=== PATIENT | male | born 1970 ===

== ENCOUNTER 2017-07-09 18:20 | Emergency (ER) | payer OTHER, BC ==
--- NOTE | 2017-07-09 19:04 | EDM.PDOC ---
ED HPI GENERAL MEDICAL PROBLEM - General Chief Complaint: Head Injury Stated Complaint: HIT WITH PIPE/LT SIDE FACE Time Seen by Provider: 07/09/17 18:51 Source of Information: Reports: Patient History Limitations: Reports: No Limitations - History of Present Illness INITIAL COMMENTS - FREE TEXT/NARRATIVE: HISTORY AND PHYSICAL: History of present illness: patient is a 46-year-old male who presents to the emergency room today with complaints of head injury. States he was at work around 10:00 this morning and was hit on the left side of the face/skull with a metal wrench. He states he had immediate intense pain but did not loose consciousness. Is now concerned as he does not remember the events for approximately 10-15 minutes after the event. He reports that people were talking to him but told him he "appeared out of it". There does not appear to be any abrasions or open skin. He is tender to palpate the left lutheran and cheek bone. denies any visual changes at this time. Pain is very localized to the left side of the face into the scalp. No hearing loss. Denies any nausea or vomiting. patient does not take any blood thinners or aspirin. Review of systems: As per history of present illness and below otherwise all systems reviewed and negative. Past medical history: As per history of present illness and as reviewed below otherwise noncontributory. Surgical history: As per history of present illness and as reviewed below otherwise noncontributory. Social history: No reported history of drug or alcohol abuse. Family history: As per history of present illness and as reviewed below otherwise noncontributory. Physical exam: Gen.: Well-developed and well-nourished 46-year-old male. Able to speak in full sentences without shortness of breath. Alert and oriented. HEENT: Atraumatic, normocephalic, pupils equal and reactive bilaterally, negative for conjunctival pallor or scleral icterus, no scleral injection, mucous membranes moist. the left lutheran and cheek bone are tender to palpation, no crepitus noted, no abrasions or soft tissue swelling noted. Throat clear, neck supple, nontender, trachea midline. Lungs: Clear to auscultation, breath sounds equal bilaterally, chest nontender. Heart: S1S2, regular, negative for clicks, rubs, or JVD. Abdomen: Soft, nondistended, nontender. Negative for masses or hepatosplenomegaly. Negative for costovertebral tenderness. Pelvis: Stable nontender. Genitourinary: Deferred. Rectal: Deferred. Extremities: Atraumatic, negative for cords or calf pain. Neurovascular unremarkable. Neuro: Awake, alert, oriented. Cranial nerves II through XII unremarkable. Cerebellum unremarkable. Motor and sensory unremarkable throughout. Exam nonfocal. Diagnostics: CT head and facial bones Therapeutics: offered Toradol, patient declined Impression: head injury without loss of consciousness Plan: 1. Please take Tylenol [id number] as needed for pain management. A prescription has been given to you for Cataflam which is an anti-inflammatory If you choose to use the Cataflam please do not take any additional NSAIDs such as ibuprofen or Aleve. 2. reviewed the head injury instructions that were discussed and given to you today. 3. Follow-up with your primary care provider in the next 1-2 days. Return to the ED as needed as discussed Definitive disposition and diagnosis as appropriate pending reevaluation and review of above. Onset: Today Location: Reports: Head, Face Left Buddhism Pain Score (Numeric/FACES): 6 - Related Data Allergies Allergy/AdvReac Type Severity Reaction Status Date / Time No Known Allergies Allergy Verified 07/09/17 18:33 Home Meds: Home Meds Lisinopril/Hydrochlorothiazide [Lisinopril-Hctz 20-12.5 mg Tab] 1 tab PO DAILY 07/09/17 [History] Past Medical History Cardiovascular History: Reports: Hypertension - Past Surgical History HEENT Surgical History: Reports: Adenoidectomy, Myringotomy w Tube(s), Tonsillectomy Social & Family History - Family History Family Medical History: Noncontributory - Tobacco Use Smoking Status *Q: Current Every Day Smoker Years of Tobacco use: 16 Packs/Tins Daily: 1 ED ROS GENERAL - Review of Systems Review Of Systems: ROS reveals no pertinent complaints other than HPI. ED EXAM, HEAD INJURY - Physical Exam Exam: See Below (see dictation) Course - Vital Signs Last Recorded V/S: Last Vital Signs Temp 37.3 C 07/09/17 18:34 Pulse 80 07/09/17 18:34 Resp 18 07/09/17 18:34 BP 144/99 H 07/09/17 18:34 Pulse Ox 99 07/09/17 18:34 - Orders/Labs/Meds Orders: Active Orders 24 hr Category Date Time Status Head wo Cont [CT] Stat Exams 07/09/17 18:58 Taken Max Facial Sinus wo Cont [CT] Stat Exams 07/09/17 19:05 Taken Departure - Departure Time of Disposition: 20:41 Disposition: Home, Self-Care 01 Clinical Impression: Head injury, acute, without loss of consciousness Qualifiers: Encounter type: initial encounter Qualified Code(s): S09.90XA - Unspecified injury of head, initial encounter - Discharge Information Referrals: PCP,None [Primary Care Provider] - Forms: ED Department Discharge Additional Instructions: My general discharge The following information is given to patients seen in the emergency department who are being discharged to home. This information is to outline your options for follow-up care. We provide all patients seen in our emergency department with a follow-up referral. The need for follow-up, as well as the timing and circumstances, are variable depending upon the specifics of your emergency department visit. If you don't have a primary care physician on staff, we will provide you with a referral. We always advise you to contact your personal physician following an emergency department visit to inform them of the circumstance of the visit and for follow-up with them and/or the need for any referrals to a consulting specialist. The emergency department will also refer you to a specialist when appropriate. This referral assures that you have the opportunity for follow-up care with a specialist. All of these measure are taken in an effort to provide you with optimal care, which includes your follow-up. Under all circumstances we always encourage you to contact your private physician who remains a resource for coordinating your care. When calling for follow-up care, please make the office aware that this follow-up is from your recent emergency room visit. If for any reason you are refused follow-up, please contact the [facility] Emergency Department at and asked to speak to the emergency department charge nurse. [facility] [address] [place] [id number] 1. Please take Tylenol [id number] as needed for pain management. A prescription has been given to you for Cataflam which is an anti-inflammatory If you choose to use the Cataflam please do not take any additional NSAIDs such as ibuprofen or Aleve. 2. reviewed the head injury instructions that were discussed and given to you today. 3. Follow-up with your primary care provider in the next 1-2 days. Return to the ED as needed as discussed - My Orders Last 24 Hours: My Active Orders 07/09/17 18:58 Head wo Cont [CT] Stat 07/09/17 19:05 Max Facial Sinus wo Cont [CT] Stat - Assessment/Plan Last 24 Hours: My Active Orders 07/09/17 18:58 Head wo Cont [CT] Stat 07/09/17 19:05 Max Facial Sinus wo Cont [CT] Stat
--- NOTE | 2017-07-10 11:03 | CT ---
EXAM DATE: 07/09/17 PATIENT'S AGE: 46 Patient: CHARMAINE OLIVEROS Facility: [place], [place] Site . Site : 1970 Study: CT Head [id number] 7:33:17 PM Ordering Physician: Doctor Huerta Final Report: INDICATION: Hit left side of head. Technique: CT head without IV contrast. CT face without IV contrast including axial, coronal and sagittal images. Findings: No intracranial hemorrhage, edema, or mass effect. Small amounts of fluid and mucosal thickening involving the bilateral paranasal sinuses. No skull or facial fracture. Both ostiomeatal complexes are patent. Remainder negative. Impression: No acute disease intracranially. No facial or skull fracture. Mild inflammatory sinus disease. Please note that all CT scans at this facility use dose modulation, iterative reconstruction, and/or weight-based dosing when appropriate to reduce radiation dose to as low as reasonably achievable. Dictated by Jim Batlazar MD @ Jul 09 2017 8:10PM (Electronic Signature) Report Signed by Proxy. [email or web address]
--- NOTE | 2017-07-10 11:04 | CT ---
EXAM DATE: 07/09/17 PATIENT'S AGE: 46 Patient: CHARMAINE OLIVEROS Facility: [place], [place] Site . Site : 1970 Study: CT Facial [id number] 7:33:47 PM Ordering Physician: Doctor Huerta Final Report: INDICATION: Hit left side of head. Technique: CT head without IV contrast. CT face without IV contrast including axial, coronal and sagittal images. Findings: No intracranial hemorrhage, edema, or mass effect. Small amounts of fluid and mucosal thickening involving the bilateral paranasal sinuses. No skull or facial fracture. Both ostiomeatal complexes are patent. Remainder negative. Impression: No acute disease intracranially. No facial or skull fracture. Mild inflammatory sinus disease. Please note that all CT scans at this facility use dose modulation, iterative reconstruction, and/or weight-based dosing when appropriate to reduce radiation dose to as low as reasonably achievable. Dictated by Jim Baltazar MD @ Jul 09 2017 8:10PM (Electronic Signature) Report Signed by Proxy. MTDD
== END 2017-07-09 21:12 | disposition home or self-care (01) ==
LOC: MW.ED 18:20
DX: S09.90XA Unspecified injury of head, initial encounter (principal); I10 Essential (primary) hypertension; F17.210 Nicotine dependence, cigarettes, uncomplicated; Z98.890 Other specified postprocedural states; Z79.899 Other long term (current) drug therapy; W22.8XXA Striking against or struck by other objects, initial encounter; Y99.0 Civilian activity done for income or pay
CPT/HCPCS: 70450; 70450-26; 70486; 70486-26; 99283; 99283-25